=== PATIENT | male | born 1990 | race Caucasian/White ===

== ENCOUNTER → 2018-09-17 12:13 | Outpatient (CLI) | payer OTHER, SELFPAY ==
[2018-09-17 13:01] LABS: Basophils # 0.1 K/mm3 (0-0.2); Basophils % 0.5 % (0.1-2.0); Eosinophils # 0.5 K/mm3 (0.0-0.4); Eosinophils % 5.1 % (0.1-12.0); Hematocrit 45.8 % (42.0-52.0); Lymphocytes # 2.9 K/mm3 (0.7-4.5); Mean Corpuscular HGB Conc 32.7 g/dL (31.8-35.4); Mean Corpuscular Volume 85.6 fl (80-94); Mean Platelet Volume 6.4 fl (7.4-10.4); Monocytes # 0.7 K/mm3 (0.1-1.0); Monocytes % 7.5 % (1.7-9.3); Neutrophils # 4.9 K/mm3 (1.8-7.8); Neutrophils % 54.7 % (37.0-80.0); Platelet Count 225 K/mm3 (142-424); Red Blood Count 5.35 M/mm3 (4.60-6.20); Red Cell Distribution Width 13.3 % (11.5-17.5)
[2018-09-17 13:55] LABS: Erythrocyte Sedimentation Rate 15 mm/hr (0-15)
[2018-09-17 14:46] LABS: Alanine Aminotransferase 85 U/L (12-78); Albumin Level 3.3 gm/dL (3.4-5.0); Alkaline Phosphatase 58 U/L (46-116); Anion Gap 8.8 mEq/L (5-15); Aspartate Amino Transferase 37 U/L (15-37); Bilirubin,Total 0.7 mg/dL (0.2-1.0); Blood Urea Nitrogen 12 mg/dL (7-18); Calcium 8.4 mg/dL (8.5-10.1); Carbon Dioxide 34 mmol/L (21.0-32.0); Chloride 102 mmol/L (98-107); Chol/HDL Ratio 4.2 (1-3.5); Cholesterol 174 mg/dL (140-200); Creatinine,Serum 0.94 mg/dL (0.70-1.30); Estimated Glomerular Filt Rate 95 ml/min (>60); Free Thyroxine Index 2.6 ug/dL (5.93-13.13); GFR (African American) 115 ML/MIN (>60); Globulin 3.2 gm/dl (1.3-3.2); Glucose 108 mg/dL (74-106); HDL Cholesterol 41 mg/dL (27-67); LDL Cholesterol 105 mg/dL (0-130); Potassium 3.8 mmoL/L (3.5-5.1); Sodium 141 mmol/L (136-145); Thyroid Stimulating Hormone 3.52 uIU/ml (0.358-3.740); Total Protein,Serum 6.5 gm/dL (6.4-8.2); Triglycerides 141 mg/dL (30-200); Triiodothryronine (T3) Uptake 32 % (31-39); VLDL Cholesterol 28 mg/dL (0-40)
[2018-09-18 21:45] LABS: Vitamin B12 358 pg/mL (232-1245); Vitamin D 25 Hydroxy 18.4 ng/mL (30.0-100.0)
[2018-09-19 14:44] LABS: Hemoglobin A1C 6.1 % (0.0-7.0)
== END ==
PROVIDERS: Visit Provider Internal Medicine Adolescent Medicine
DX: E78.5 Hyperlipidemia, unspecified (principal); R53.83 Other fatigue; R53.81 Other malaise; G47.33 Obstructive sleep apnea (adult) (pediatric); I87.2 Venous insufficiency (chronic) (peripheral); R73.9 Hyperglycemia, unspecified; E55.9 Vitamin D deficiency, unspecified
CPT/HCPCS: 36415; 80053; 80061; 82607; 82652; 83036; 84436; 84443; 84479; 85025; 85651

== ENCOUNTER 2022-08-09 11:59 | Emergency (ER) | payer OTHER, SELFPAY ==
[2022-08-09 12:10] VITALS: BP 154/85; PULSE 82; RESP 23; TEMP 36.7; O2SAT 98; BMI 41.8
[2022-08-09 12:20] VITALS: BP 154/85; PULSE 82; RESP 23; TEMP 36.7; O2SAT 98
== END 2022-08-09 12:30 | disposition home or self-care (01) ==
PROVIDERS: Emergency Provider Nurse Practitioner; PCP Internal Medicine Adolescent Medicine
DX: Z23 Encounter for immunization (principal); S00.81XA Abrasion of other part of head, initial encounter; W22.8XXA Striking against or struck by other objects, initial encounter
CPT/HCPCS: 90471; 90715; 96372; 99212; G0463

== ENCOUNTER 2022-09-05 00:22 | Emergency (ER) | payer OTHER, SELFPAY ==
[2022-09-05 00:23] VITALS: BP 139/98; PULSE 94; RESP 16; TEMP 36.8; O2SAT 98; BMI 48.8
[2022-09-05 00:31] VITALS: BP 152/91; PULSE 84; O2SAT 98
--- NOTE | 2022-09-05 00:39 | HMH.EDWNDL ---
Discharge Plan Disposition Patient Disposition: Home, Self-Care Chief Complaint: Wound/Laceration Referrals Follow up/Referrals: Rafa Marie MD [Primary Care Provider] - See instructions Clinical Impressions Clinical Impression: Laceration Instructions Patient Instructions: DI for Laceration Repair Discharge ED Provider: Edmund (ED),Daljit Leigh Wound/Laceration HPI General Chief Complaint: Wound/Laceration Stated Complaint: Left thumb cut AO 09/04/22 1273 Time Seen by Provider: 09/05/22 00:39 Mode of Arrival: Ambulatory Source of Information: Patient, Relative and Medical Record Limitations: No Limitations Description of Symptoms (Recalled from ER Triage Doc. by RN): pt states was usinga knife and slip cutting lt thumb History of Present Illness HPI narrative: acute lt thumb lac Onset (ago): hour(s) Extremity Location: Left: hand Place: home Patient tetanus UTD: Yes Context: sharp object use Associated symptoms: none Related Data Allergies Allergy/AdvReac Type Severity Reaction Status Date / Time No Known Allergies Allergy Unverified 03/16/17 15:25 [facility] [place] Disclaimer: The information contained in this section may have been updated after the patient was seen, as this information can be updated by other users. Social History Smoking Status: Never smoker alcohol intake: never current occupational status: employed Travel in the last 8 weeks: None ROS Obtained: Yes All systems reviewed & no additional complaints except as documented Physical Exam General General appearance: alert Head Head exam: normocephalic Eye Eye exam: Present PERRL and EOMI ENT ENT exam: Present mucous membranes moist Neck Neck exam: Present trachea midline Respiratory Respiratory exam: Absent respiratory distress Cardiovascular Cardiovascular exam: Present regular rate Abdominal Exam Abdominal exam: Present soft Extremities Exam Extremities exam: Present full ROM and other (0.5 cm lt thumb lac - no fb and neurovascular ok , tendon ok) Neurological Exam Neurological exam: Present alert, oriented X3 and CN II-XII intact Psychiatric Psychiatric exam: Present normal affect Skin Skin exam: Absent rash Medical Decision Making Medical Records Medical records reviewed: Yes I reviewed the patient's medical records. Reji Inquiry Pt receiving controlled substance: No Vital Signs: 09/05/22 00:23 Temperature 98.3 F Temperature Source Oral Pulse Rate [Right] 94 H Respiratory Rate 16 Blood Pressure [Right Arm] 139/98 H Blood Pressure Mean [Right Arm] 111 02 Sat by Pulse Oximetry 98 Orders (Tests/Meds): ED MEDICATIONS Discontinued Medications Generic Name Dose Route Start Last Admin Trade Name Kaity PRN Reason Stop Dose Admin Lidocaine HCl 10 ml 09/05/22 00:34 09/05/22 00:39 Lidocaine 1% 10ml Mdv SQ 09/05/22 00:35 10 ml ONCE ONE Administration Medical Decision Narrative: lt thumb lac with sutures out 8-10 days and recheck if needed Procedures Laceration Laceration 1: Site: thumb Side (If applicable): left Size (cm): 0.5 Description: linear Depth: involves subcutaneous layer Local Anesthetic: lidocaine 1% Amount of anesthesia used (mL): 1 Pre-repair: deep structures intact Skin layer closed with: nylon Size (cm): 4-0 Number of sutures: 2 Technique: simple, interrupted Critical Care Time Critical Care Time Critical Care Time: No Attestation: On 09/05/22, the high probability of a clinically significant, sudden or life threatening deterioration of the following system(s) required my full and direct attention, intervention and personal management. The time I documented below is in addition to time spent performing reported procedures but includes the following listed in this critical care notation.
[2022-09-05 00:47] VITALS: BP 141/87; PULSE 91; RESP 16; TEMP 36.9; O2SAT 97
== END 2022-09-05 00:55 | disposition home or self-care (01) ==
PROVIDERS: Emergency Provider Emergency Medicine; PCP Internal Medicine Adolescent Medicine
DX: S61.012A Laceration without foreign body of left thumb without damage to nail, initial encounter (principal); W26.0XXA Contact with knife, initial encounter
CPT/HCPCS: 12041; 99283; 99284

== ENCOUNTER 2024-09-24 17:18 | Emergency (ER) | payer BC, SELFPAY ==
[2024-09-24 17:26] VITALS: BP 160/80; PULSE 86; RESP 24; TEMP 36.7; O2SAT 97; BMI 52.9
--- NOTE | 2024-09-24 17:28 | ED_ITS ---
Discharge Plan Disposition Patient Disposition: Home, Self-Care Condition: Good Referrals Follow up/Referrals: Rafa Marie MD [Primary Care Provider, Internal Medicine] - See instructions Activity Restrictions/Add. Instructions Additional Instructions/Restrictions: Please return to the emergency department with any worsening signs or symptoms, keep your knee abrasion clean and dry, please utilize ibuprofen Tylenol rest ice and elevation as needed for symptomatic relief. Please follow-up with your primary care doctor. Clinical Impressions Clinical Impression: Right knee sprain, Abrasion of knee, right Instructions Patient Instructions: Knee Sprain Print Language Print Language: Sinhala Discharge ED Provider: Osmani White General Adult HPI <KARO Campo - Last Filed: 09/24/24 18:19> General Chief complaint: Extremity Injury, Lower Stated complaint: A/O 09-230 fell dn stairs, now rt knee pain Time Seen by Provider: 09/24/24 17:21 Mode of Arrival: Ambulatory Source of Information: Patient Limitations: No Limitations History of Present Illness HPI narrative: 34-year-old male presents to the emergency department with right knee pain, after last night. Patient states he fell down 3 steps , landing on his right knee last night, he has been ambulating on the affected knee, but does endorse some pain with ambulation, patient denies any fever chills chest pain shortness of breath nausea vomiting constipation diarrhea, denies any loss of consciousness, denies striking the head, denies any other upper or lower extremity injury, denies any upper or lower extremity weakness no numbness or tingling, no radicular type symptomatology, no other injury from the fall, no back pain, or neck pain, patient is a non-smoker denies any alcohol or drug use, initial triage vitals are grossly unremarkable, patient has other past medical history consistent with hypertension, prediabetes and generalized anxiety disorder. Onset (ago): day(s) Related Data Allergies Allergy/AdvReac Type Severity Reaction Status Date / Time No Known Allergies Allergy Unverified 03/16/17 15:25 PFSH <KARO Campo - Last Filed: 09/24/24 18:19> [facility] Disclaimer: The information contained in this section may have been updated after the patient was seen, as this information can be updated by other users. Social History (Updated 09/05/22 @ 00:51 by Daljit CHAVIS)MD) Smoking Status: Current every day smoker alcohol intake: never current occupational status: employed Travel in the last 8 weeks?: None Have you lived/traveled outside US in past 30 days?: No Contact w/someone who lives/traveled outside US past 30 days?: No Exposure to someone with infectious disease in past 14 days?: No Do you have a fever (greater than 100.4 F or 38 C)?: No Have you tested positive for COVID-19?: No Exposed to someone with COVID-19 in past 14 days?: No Do you have a sore throat?: No Do you have a cough?: No Do you have any weakness?: No Do you have any diarrhea?: No Are you experiencing any unusual bleeding?: No Do you have any muscle aches/pain?: No Do you have any abdominal pain?: No Are you experiencing loss of taste or smell?: No Other Medical History Have you received the Flu Vaccine for this season: No Have you received the Pneumonia Vaccine: No <KARO Campo - Last Filed: 09/24/24 18:19> ROS Obtained: Yes All systems reviewed & no additional complaints except as documented Physical Exam <KARO Campo - Last Filed: 09/24/24 18:19> General General appearance: alert and in no apparent distress Head Head exam: atraumatic and normocephalic Eye Eye exam: Present PERRL and EOMI ENT ENT exam: Present mucous membranes moist Neck Neck exam: Present normal inspection Chest Chest inspection: Present normal inspection and symmetric chest wall rise Respiratory Respiratory exam: Present normal lung sounds bilaterally; Absent respiratory distress Cardiovascular Cardiovascular exam: Present regular rate and normal rhythm Abdominal Exam Abdominal exam: Present soft; Absent tenderness Extremities Exam Extremities exam: Present normal inspection, full ROM, tenderness and other (Mild abrasion over the patella aspect of the right knee, patella is mobile, patient has some mild joint line tenderness, no overt midline joint effusion, patient has good strength, and good flexion extension, no pain limited range of motion, otherwise neurovascular intact.) Neurological Exam Neurological exam: Present alert and oriented X3 Psychiatric Psychiatric exam: Present normal affect Skin Skin exam: Present warm and dry Medical Decision Making <KARO Campo - Last Filed: 09/24/24 18:19> Medical Records Medical records reviewed: Yes I reviewed the patient's medical records. Screening: Per USPSTF and CDC recommendations, given the prevalence of disease in our region, it is our hospital?s policy to screen for HIV and viral Hepatitis for all patients aged 18 and over and those with ongoing risk factors. Reji Inquiry Pt receiving controlled substance: No Reji was queried for this patient: No Vital Signs: 09/24/24 17:26 09/24/24 18:23 Temperature 98.0 F 98.2 F Temperature Source Oral Pulse Rate 70 Pulse Rate [Left Radial] 86 Respiratory Rate 24 20 Blood Pressure 148/70 H Blood Pressure [Right Arm] 160/80 H Blood Pressure Mean [Right Arm] 106 02 Sat by Pulse Oximetry 97 Oxygen Delivery Method Room Air Room Air Orders (Tests/Meds): ED MEDICATIONS Discontinued Medications Generic Name Dose Route Start Last Admin Trade Name Freq PRN Reason Stop Dose Admin Ibuprofen 600 mg 09/24/24 17:35 09/24/24 17:39 Ibuprofen 600 Mg Tablet PO 09/24/24 17:36 600 mg ONCE ONE Administration ORDERS Category Date Time Status Knee XR right 3 views [XR knee RT 3V] Stat Exams 09/24/24 17:31 Completed Tibia/fibula XR right 2 views [XR tibia fibula RT 2V] Exams 09/24/24 17:35 Completed Stat Medical Decision Narrative: 34-year-old male presents to the emergency department with right knee pain after fall, differential diagnosis include but not limited to, knee abrasion, knee sprain/strain, knee ligamentous injury, osteoarthritis, knee fracture. I discussed this patient's case with my attending physician Dr. White Obtain x-ray of the knee on the right and x-ray of the tib-fib on the right, will give 600 mg p.o. ibuprofen for pain. I will with the attending physician reviewed and independently interpreted the patient's knee x-ray and tib-fib x-rays, there is no acute fracture or traumatic malalignment, no acute bony abnormality, I discussed these findings with the patient and family at the bedside, patient and family would like to be discharged home to self-care, shared decision-making was utilized this is appropriate, will call patient with full formal radiology report if any abnormal findings. This was discussed with patient and family bedside patient and family are in agreement with current treatment plan/discharge plan. Recommend rest ibuprofen Tylenol elevation as needed for symptomatic relief. Patient was given strict ED return precautions. <Osmani White MD - Last Filed: 09/24/24 21:08> Vital Signs: 09/24/24 17:26 09/24/24 18:23 Temperature 98.0 F 98.2 F Temperature Source Oral Pulse Rate 70 Pulse Rate [Left Radial] 86 Respiratory Rate 24 20 Blood Pressure 148/70 H Blood Pressure [Right Arm] 160/80 H Blood Pressure Mean [Right Arm] 106 02 Sat by Pulse Oximetry 97 Oxygen Delivery Method Room Air Room Air Orders (Tests/Meds): ED MEDICATIONS Discontinued Medications Generic Name Dose Route Start Last Admin Trade Name Freq PRN Reason Stop Dose Admin Ibuprofen 600 mg 09/24/24 17:35 09/24/24 17:39 Ibuprofen 600 Mg Tablet PO 09/24/24 17:36 600 mg ONCE ONE Administration ORDERS Category Date Time Status Knee XR right 3 views [XR knee RT 3V] Stat Exams 09/24/24 17:31 Completed Tibia/fibula XR right 2 views [XR tibia fibula RT 2V] Exams 09/24/24 17:35 Completed Stat Medical Decision Narrative: 34-year-old male presents to the emergency department with right knee pain after fall, differential diagnosis include but not limited to, knee abrasion, knee sprain/strain, knee ligamentous injury, osteoarthritis, knee fracture. I discussed this patient's case with my attending physician Dr. White Obtain x-ray of the knee on the right and x-ray of the tib-fib on the right, will give 600 mg p.o. ibuprofen for pain. I will with the attending physician reviewed and independently interpreted the patient's knee x-ray and tib-fib x-rays, there is no acute fracture or traumatic malalignment, no acute bony abnormality, I discussed these findings with the patient and family at the bedside, patient and family would like to be discharged home to self-care, shared decision-making was utilized this is appropriate, will call patient with full formal radiology report if any abnormal findings. This was discussed with patient and family bedside patient and family are in agreement with current treatment plan/discharge plan. Recommend rest ibuprofen Tylenol elevation as needed for symptomatic relief. Patient was given strict ED return precautions. I was consulted by the SANJIV, and we discussed the complexity of the problems being addressed. I approved the treatment and management plan for this patient's care in the Emergency Department, thus performing a substantive portion of the medical decision making. Osmani White MD Critical Care <KARO Campo - Last Filed: 09/24/24 18:19> Critical Care Time Critical Care Time: No
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
[2024-09-24] MEDS: IBUPROFEN 600 MG TABLET PO (17:39)
--- NOTE | 2024-09-24 18:00 | PC.NURSE ---
supplied patient with ice pack
[2024-09-24 18:23] VITALS: BP 148/70; PULSE 70; RESP 20; TEMP 36.8; O2SAT 98
== END 2024-09-24 18:24 | disposition home or self-care (01) ==
PROVIDERS: Emergency Provider Emergency Medicine; PCP Internal Medicine Adolescent Medicine
DX: S83.91XA Sprain of unspecified site of right knee, initial encounter (principal); S80.211A Abrasion, right knee, initial encounter; M25.561 Pain in right knee; W10.8XXA Fall (on) (from) other stairs and steps, initial encounter
CPT/HCPCS: 73562; 73590; 99283

== ENCOUNTER 2025-03-20 15:21 | Emergency (ER) | payer BC, SELFPAY ==
[2025-03-20 15:25] VITALS: BP 173/104; PULSE 64; RESP 15; TEMP 36.7; O2SAT 97; BMI 51.5
[2025-03-20 15:30] VITALS: BP 173/104; PULSE 66; O2SAT 96
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
[2025-03-20] MEDS: ACETAMINOPHEN 500MG TAB 1000 MG PO (16:00)
[2025-03-20 16:01] VITALS: BP 154/80; PULSE 64; O2SAT 94
[2025-03-20 16:13] LABS: Hematocrit 45.3 % (42.0-52.0); Hemoglobin 15.7 g/dL (14.1-18.0); Immature Granulocytes % 0.7 %; Mean Corpuscular HGB Conc 34.7 g/dL (31.8-35.4); Mean Corpuscular Hemoglobin 29.6 pg (27.0-31.2); Mean Corpuscular Volume 85.3 fl (80-94); Nucleated Red Blood Cells % 0 %; Platelet Count 225 K/mm3 (142-424); Red Blood Count 5.31 M/mm3 (4.60-6.20); Red Cell Distribution Width-SD 39.7 fL; White Blood Count 12.1 K/mm3 (4.8-10.8)
[2025-03-20 16:17] LABS: Albumin Level 4.6 g/dl (3.5-5.0); Chloride 99 mmol/L (98-107); Potassium 3.5 mmoL/L (3.5-5.1); Sodium 137 mmol/L (136-145)
[2025-03-20 16:19] LABS: Alanine Aminotransferase 48 U/L (12-78); Aspartate Amino Transferase 37 U/L (17-59); Blood Urea Nitrogen 11 mg/dl (9-20); Creatinine Clearance Estimated 122 mL/min (50-200); Creatinine,Serum 0.90 mg/dl (0.66-1.25); Estimated Glomerular Filt Rate 96 ml/min (>60); GFR (African American) 116 ML/MIN (>60)
[2025-03-20 16:20] LABS: Albumin/Globulin Ratio 1.4 (1.1-1.8); Alkaline Phosphatase 55 U/L (38-126); Anion Gap 11.5 mEq/L (5-15); Bilirubin,Total 0.6 mg/dl (0.2-1.3); Calcium 9.7 mg/dl (8.4-10.2); Carbon Dioxide 30 mmol/L (22.0-30.0); Globulin 3.4 g/dL (1.3-3.2); Glucose 126 mg/dl (74-100); Total Protein,Serum 8.0 g/dl (6.3-8.2)
[2025-03-20] MEDS: 0.9 % SODIUM CHLORIDE 50 ML VIAL IV (16:58)
[2025-03-20] MEDS: IOPAMIDOL-370 (76%);100ML BOTTLE 160 ML IV (16:58)
[2025-03-20] MEDS: SODIUM CHLORIDE 0.9% 10ML SYR (RAD ONLY) 10 ML IV (17:04)
[2025-03-20 17:20] VITALS: BP 143/76; PULSE 59; O2SAT 95
[2025-03-20 17:49] VITALS: BP 134/74; PULSE 58; RESP 18; TEMP 36.8; O2SAT 100
[2025-03-20 18:12] LABS: Hepatitis C Ab Qual. W/ RFX NEGATIVE (Negative)
== END 2025-03-20 17:59 | disposition home or self-care (01) ==
PROVIDERS: Physician Assistant; Emergency Provider Student in an Organized Health Care Education/Training Program; PCP Internal Medicine Adolescent Medicine
DX: S39.012A Strain of muscle, fascia and tendon of lower back, initial encounter (principal); V49.40XA Driver injured in collision with unspecified motor vehicles in traffic accident, initial encounter; Y92.410 Unspecified street and highway as the place of occurrence of the external cause; M54.2 Cervicalgia; R10.9 Unspecified abdominal pain; M54.6 Pain in thoracic spine
CPT/HCPCS: 70450; 70498; 71275; 72125; 72128; 72131; 74174; 80053; 85025; 86803; 87389; 96360; 99285; Q9967